=== PATIENT | male | born 1965 | race African-American/Black ===

== ENCOUNTER 2018-09-19 11:46 | Emergency (ER) | payer SELFPAY ==
[2018-09-19] MEDS ORDERED: LORazepam 0.5 MG TABLET PO STA (12:49)
--- NOTE | 2018-09-19 12:54 | ED Physician Documentation ---
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 He developed pain on the right side of his neck this morning while moving household furniture and boxes. He complains of spasms, worse with movement of his neck or his right arm. He denies numbness or weakness. He denies headache, sore throat, or shortness of breath. He denies history of similar symptoms in the past. Review of Systems Constitutional: denies: Fever Eyes: denies: Irritation Ears: denies: Tinnitus/ringing Nose: denies: Congestion Throat: denies: Sore throat Cardiac: denies: Chest pain / pressure Respiratory: denies: Dyspnea, Cough GI: denies: Abdominal Pain, Nausea, Vomiting : denies: Dysuria Skin: denies: Rash Musculoskeletal: reports: Neck pain. denies: Back pain, Extremity pain Neurologic: denies: Focal weakness, Numbness, Headache PD PAST MEDICAL HISTORY - Past Medical History Past Medical History: No Cardiovascular: None Respiratory: None Neuro: None Endocrine/Autoimmune: None GI: None : None HEENT: None Psych: None Musculoskeletal: None Derm: None - Past Surgical History Past Surgical History: No - Present Medications Home Medications: Ambulatory Orders Medication Instructions Recorded Confirmed Cyclobenzaprine [Flexeril] 10 mg PO TID PRN #20 tablet 09/19/18 Hydrocodone/Acetaminophen 1 - 2 each PO Q6H PRN #10 tablet 09/19/18 [Hydrocodon-Acetaminophen 5-325] - Allergies Allergies/Adverse Reactions: Allergies Allergy/AdvReac Type Severity Reaction Status Date / Time No Known Drug Allergies Allergy Verified 09/19/18 11:52 - Social History Does the pt smoke?: No Smoking Status: Never smoker Does the pt drink ETOH?: Yes ETOH Use: Beer Does the pt have substance abuse?: No - Immunizations Immunizations are current?: Yes - POLST Patient has POLST: No PD ED PE NORMAL - Vitals Vital signs reviewed: Yes (hypertensive) - General General: Alert and oriented X 3, Well developed/nourished, Other (Holding his head relatively stiffly.) - HEENT HEENT: Atraumatic, EOMI, Ears normal, Pharynx benign - Neck Neck: Supple, no meningeal sign, No bony TTP, No adenopathy, No JVD, Other (Tenderness to palpation along the right paracervical musculature and the right trapezius musculature.) - Cardiac Cardiac: RRR - Respiratory Respiratory: No respiratory distress, Clear bilaterally - Abdomen Abdomen: Soft, Non tender - Back Back: No CVA TTP - Derm Derm: No rash - Extremities Extremities: No edema, No calf tenderness / cord - Neuro Neuro: Alert and oriented X 3, No motor deficit, No sensory deficit Results - Vitals Vitals: Vital Signs - 24 hr 09/19/18 09/19/18 11:48 14:34 Temperature 36.1 C L 36.2 C L Heart Rate 73 69 Respiratory 20 16 Rate Blood Pressure 180/111 H 164/104 H O2 Saturation 100 98 Oxygen O2 Source Room air PD MEDICAL DECISION MAKING - ED course Complexity details: re-evaluated patient, considered differential, d/w patient ED course: The patient's presentation is most consistent with right cervical/trapezius muscle strain with spasm. His presentation does not suggest cervical spine injury or neurologic injury. Treatment in the emergency department included administration of Ativan 0.5 mg orally and oxycodone 5 mg orally. A right arm sling was applied. He is being discharged with prescription for Flexeril and for Vicodin, 10 tablets. I discussed with him symptomatic treatment, as well as potentially worrisome signs or symptoms that should prompt reevaluation in the emergency department. Departure - Departure Disposition: 01 Home, Self Care Clinical Impression: Cervical strain, acute Qualifiers: Encounter type: initial encounter Qualified Code(s): S16.1XXA - Strain of muscle, fascia and tendon at neck level, initial encounter Condition: Stable Instructions: ED Spasm Neck No Injury Prescriptions: Cyclobenzaprine [Flexeril] 10 mg PO TID PRN #20 tablet PRN Reason: Spasms Hydrocodone/Acetaminophen [Hydrocodon-Acetaminophen 5-325] 1 - 2 each PO Q6H PRN #10 tablet PRN Reason: pain Comments: Apply ice pack to your neck intermittently for the next 2 or 3 days. You can use Flexeril as prescribed as needed for muscle spasm. You can use Vicodin as prescribed if needed for pain. You can use ibuprofen, up to 800 mg 3 times daily for its anti-inflammatory effect. Let pain be your guide to activity level. Return to the emergency department if you develop increasing pain, numbness or weakness, or otherwise worsening symptoms. Forms: Activity restrictions Discharge Date/Time: 09/19/18 14:41
[2018-09-19] MEDS ORDERED: oxyCODONE 5 MG TABLET PO STA (13:49)
[2018-09-19 14:36] VITALS: BP 164/104
== END 2018-09-19 14:41 | disposition home or self-care (01) ==
LOC: ED 11:46
DX: S16.1XXA Strain of muscle, fascia and tendon at neck level, initial encounter (principal); X50.1XXA Overexertion from prolonged static or awkward postures, initial encounter; Y93.E6 Activity, residential relocation; Y99.0 Civilian activity done for income or pay
CPT/HCPCS: 99283; A9270